=== PATIENT | male | born 1995 | race Caucasian/White ===

== ENCOUNTER → 2019-09-30 | Outpatient (CLI) | payer OTHER ==
--- NOTE | 2019-09-30 08:35 | REPPI ---
Clinical: Chronic back pain . Technique: AP, lateral, bilateral oblique, and coned-down views. Findings: Alignment and lordosis is maintained. The vertebral bodies including transverse process and spinous processes are intact and normal. There is no evidence for acute fracture / compression injury or subluxation. No evidence for spondylolysis or spondylolisthesis. No significant degenerative change is noted. Impression: Normal lumbosacral spine radiograph series. Electronically Signed by Emerson Lim MD 09/30/2019 08:26 A
[2019-09-30 13:21] LABS: BASO # 0.1 10^3/uL (0.0-0.2); BASO % 1.4 % (0.0-1.0); EOS # 0.6 10^3/uL (0.0-0.5); EOS % 9.7 % (0.0-3.0); HEMATOCRIT 46.6 % (42.0-52.0); HEMOGLOBIN 15.4 g/dl (13.5-17.5); LYMPH # 1.9 10^3/uL (1.5-5.0); LYMPH % 31.4 % (24.0-44.0); MEAN CORPUSCULAR HEMOGLOBIN 29.4 pg (27.0-33.0); MEAN CORPUSCULAR VOLUME 88.9 fl (80.0-96.0); MONO # 0.5 10^3/uL (0.0-0.8); NEUTROPHILS # 2.9 10^3/uL (1.5-8.5); NEUTROPHILS % 49.3 % (36.0-66.0); PLATELET COUNT, AUTOMATED 182 10^3/uL (150-450); RED BLOOD COUNT 5.24 10^6/uL (4.30-6.10); WHITE BLOOD COUNT 5.9 10^3/uL (4.0-10.0)
[2019-09-30 13:32] LABS: ALBUMIN 4.3 GM/DL (3.2-5.2); ALT/SGPT 28 U/L (12-78); BILIRUBIN,TOTAL 0.6 MG/DL (0.2-1.0); BLOOD UREA NITROGEN 19 MG/DL (7-18); CALCIUM LEVEL 8.9 MG/DL (8.5-10.1); CARBON DIOXIDE LEVEL 31 MEQ/L (21-32); CHLORIDE LEVEL 107 MEQ/L (98-107); CHOLESTEROL LEVEL 156 MG/DL (<200); CHOLESTEROL RISK RATIO 3.183 (<5); CREATININE FOR GFR 1.18 MG/DL (0.70-1.30); FREE T4 1.11 NG/DL (0.76-1.46); GLOMERULAR FILTRATION RATE > 60.0 (>60); GLUCOSE, FASTING 96 MG/DL (70-100); HDL CHOLESTEROL 49 MG/DL (>40); LDL CHOLESTEROL 89 MG/DL (<100); NON-HDL-C 107 MG/DL; POTASSIUM SERUM 4.6 MEQ/L (3.5-5.1); SODIUM LEVEL 142 MEQ/L (136-145); TOTAL PROTEIN 6.7 GM/DL (6.4-8.2); TRIGLYCERIDES LEVEL 90 MG/DL (<150)
== END ==
LOC: M PLALAB 08:07
PROVIDERS: ATTEND Family Medicine
DX: R53.83 Other fatigue (principal)

== ENCOUNTER → 2019-11-24 | Outpatient (REF) | payer BC, OTHER | LOC: M LAB REF 18:48 | PROVIDERS: ATTEND Physician Assistant Medical | DX: Z20.828 Contact with and (suspected) exposure to other viral communicable diseases (principal) ==

== ENCOUNTER → 2019-11-26 | Outpatient (CLI) | payer BC, OTHER ==
--- NOTE | 2019-12-12 12:52 | REPPI ---
BILATERAL HIP SERIES: 11/26/2019 CLINICAL: Bilateral hip pain. TECHNIQUE: AP view of the pelvis with neutral and frog lateral views of the right and left hip. FINDINGS: The osseous structures are intact and there no evidence for acute or healed injury. The hip joints demonstrate mild symmetric increased sclerosis along the acetabular roof with symmetric joint spaces noted bilaterally. No further arthritic changes are appreciated. No obvious loose bodies are identified. IMPRESSION: 1. Symmetric appearance to the bi lateral hips with minimally increased sclerosis along the acetabular roofs. Otherwise normal examination. MTDD
== END ==
LOC: M PLAIMG 13:20
PROVIDERS: ATTEND Family Medicine
DX: M25.559 Pain in unspecified hip (principal)

== ENCOUNTER → 2019-12-24 | Outpatient (CLI) | payer BC, OTHER ==
--- NOTE | 2019-12-24 18:43 | REP ---
INDICATION: HIP PAIN RADICULOPATHY/OTHER ARTICULAR CARTILAGE D patient complains of back and right hip pain. COMPARISON: Comparison radiographs November 26, 2019.. TECHNIQUE: Coronal large field of view T1 and fat-sat T2 images are obtained of both hips. Smaller [id number] high-resolution T2 fat-sat axial, coronal and sagittal images of the right hip are obtained. FINDINGS: Cortical and medullary bone signal intensity is normal in the proximal femurs. There is no evidence of avascular necrosis on either side. There is mild subcortical cyst formation in the superior acetabulum on the right. There is no evidence of hip joint effusion on either side. No loose body is seen. Ligamentum teres appears intact. No labral tear is appreciated. Head neck junction morphology is normal bilaterally. No intrapelvic mass or adenopathy is seen. Urinary bladder prostate and seminal vesicles are unremarkable. Cortical and medullary bone signal intensity is normal in the visualized bony pelvic ring. IMPRESSION: Small subcortical cyst in the superior acetabular margin on the right. No labral cartilage tear is appreciated. Otherwise normal MRI study of the right hip. <Electronically signed by Gulshan Wright > 12/24/19 [id number]
--- NOTE | 2019-12-24 18:56 | REPVR ---
PROCEDURE INFORMATION: Exam: MR Lumbar Spine Without Contrast. Exam date and time: 12/24/2019 5:31 PM Age: 24 years old Clinical indication: Pain; Lumbago with sciatica; Right; Additional info: Hip pain radiculopathy/other articular cartilage TECHNIQUE: Imaging protocol: Multiplanar magnetic resonance images of the lumbar spine without intravenous contrast. COMPARISON: CR SPINE LS COMPLETE 09/30/2019 8:25 AM FINDINGS: Vertebrae: There is a focal concavity or Schmorl's node involving the superior L3 endplate, which is a chronic finding compared to the prior radiographs. The remaining lumbar vertebral bodies are normal in height, without abnormal subluxation. Within the left L3 pedicle, there is a STIR hyperintense lesion or focal area of edema. This is of indeterminate clinical significance. This measures 1.4 cm in diameter. Spinal cord: The distal end of the conus medullaris ends at L1-L2, normal in position. L1-L2: There is no significant narrowing of the thecal sac or neural foramina. No posterior disc herniation. L2-L3: There is a degenerative decrease in the T2 signal intensity and height of the L2-L3 disc. No significant narrowing of the thecal sac or neural foramina. L3-L4: There is no significant narrowing of the thecal sac or neural foramina. No posterior disc herniation. L4-L5: There is no significant narrowing of the thecal sac or neural foramina. No posterior disc herniation. L5-S1: Minimal disc bulging, without significant narrowing of the thecal sac. Mild facet arthropathy visualized. No significant narrowing of the neural foramina bilaterally. Soft tissues: No significant paraspinal swelling. IMPRESSION: 1. Mild degenerative changes are identified at L2-L3 and L5-S1, as described above. No significant narrowing of the thecal sac at any lumbar level. 2. Within the left L3 pedicle, there is a small lesion or focal area of edema. This is of indeterminate clinical significance. A follow-up MRI is suggested. 3. Additional findings described above. Electronically signed by: Jeyson Ellis On 12/24/2019 18:56:08 PM
== END ==
LOC: M RAD 16:38
PROVIDERS: ATTEND Family Medicine
DX: M54.16 Radiculopathy, lumbar region (principal); M51.36 Other intervertebral disc degeneration, lumbar region; M51.37 Other intervertebral disc degeneration, lumbosacral region; M24.159 Other articular cartilage disorders, unspecified hip

== ENCOUNTER 2021-05-14 15:11 | Emergency (ER) | payer OTHER ==
[~2021-05-14] VITALS: Ht 188 cm; Wt 84.1 kg
[2021-05-14] MEDS ORDERED: NORCO, ANEXSIA 5/325MG TABLET (HYDROcodone/ACETAMINOPHEN) PO ONE (15:55)
[2021-05-14 17:27] VITALS: BP 130/96
== END 2021-05-14 17:29 | disposition home or self-care (01) ==
LOC: M ED 15:11
DX: S83.92XA Sprain of unspecified site of left knee, initial encounter (principal); X58.XXXA Exposure to other specified factors, initial encounter; Y92.89 Other specified places as the place of occurrence of the external cause

== ENCOUNTER → 2023-05-28 | Outpatient (REF) | payer OTHER | LOC: M LAB REF 09:33 | PROVIDERS: ATTEND Student in an Organized Health Care Education/Training Program | DX: A60.01 Herpesviral infection of penis (principal) ==

== ENCOUNTER → 2023-05-29 | Outpatient (CLI) | payer OTHER ==
[2023-05-29 19:49] LABS: HIV 1&2 SCREEN NEGATIVE (NEGATIVE)
[2023-05-29 19:57] LABS: HEPATITIS C VIRUS ABY INDEX 0.04 INDEX (<0.8)
[2023-05-31 08:12] LABS: HSV TYPE II IgG SPECIFIC <0.91 index (0.00-0.90)
== END ==
LOC: M WUC 11:14
PROVIDERS: ATTEND Nurse Practitioner Family
DX: Z11.3 Encounter for screening for infections with a predominantly sexual mode of transmission (principal)